=== PATIENT | female | born 1985 | race Two or more races ===

== ENCOUNTER 2020-06-08 17:34 | Outpatient (CLI) | payer OTHER | END 2020-06-08 18:05 | disposition home or self-care (01) | LOC: LAB 17:34 | PROVIDERS: ATTEND Orthopaedic Surgery | DX: M25.462 Effusion, left knee (principal) ==

== ENCOUNTER 2023-07-21 19:16 | Emergency (ER) | payer OTHER ==
[~2023-07-21] VITALS: Ht 170.2 cm; Wt 103.0 kg
[2023-07-22] MEDS ORDERED: KETO10TA2 PO (02:03)
[2023-07-22] MEDS ORDERED: LEVSIN/SL0.125 MG SL (02:04)
== END 2023-07-22 02:22 ==
LOC: ER 19:16
DX: K57.90 Diverticulosis of intestine, part unspecified, without perforation or abscess without bleeding (principal); R10.9 Unspecified abdominal pain

== ENCOUNTER 2024-08-01 08:08 | Emergency (ER) | payer OTHER ==
[~2024-08-01] VITALS: Ht 170.2 cm; Wt 105.2 kg
[~2024-08-01 08:08] MED LIST: KETO10TA2 PO; LEVSIN/SL0.125 MG SL
[2024-08-01] MEDS ORDERED: FAMOTIDINE/PF 20 MG/2 ML VIAL ONE (09:29)
[2024-08-01] MEDS ORDERED: ONDANSETRON HCL 2 MG/ML VIAL ONE (09:29)
[2024-08-01] MEDS ORDERED: FAMOTIDINE/PF 20 MG/2 ML VIAL IV PUSH ONE (09:30)
[2024-08-01] MEDS ORDERED: ONDANSETRON HCL 2 MG/ML VIAL IV ONE (09:30)
[2024-08-01] MEDS ORDERED: HYOSCYAMINE SULFATE 0.125 MG TAB.SUBL SL ONE (09:30)
[2024-08-01] MEDS ORDERED: HYOSCYAMINE SULFATE 0.125 MG TAB.SUBL ONE (09:33)
[2024-08-01 10:16] LABS: HEMATOCRIT 36.5 % (36.0-45.00); HEMOGLOBIN 12.1 g/dL (12.0-15.00); MEAN CORPUSCULAR HGB CONC 33.3 g/dl (32.0-36.0); PLATELET COUNT 289 K/uL (150-450); RED CELL DISTRIBUTION WIDTH 13.8 % (11.5-14.5)
[2024-08-01 10:19] LABS: URINE APPEARANCE Clear; URINE BILIRRUBIN Negative (NEGATIVE); URINE BLOOD Negative; URINE COLOR Yellow; URINE GLUCOSE Negative (NEGATIVE); URINE KETONE Negative (NEGATIVE); URINE LEUKOCYTE Negative; URINE NITRATE Negative; URINE PROTEIN Negative (NEGATIVE); URINE UROBILINOGEN 0.2 E.U./dl
[2024-08-01 10:24] LABS: URINE BACTERIA 153.6 uL (0.0-1933); URINE EPITHELIAL CELLS 3.8 uL (0.0-38.8); URINE RBC 7.7 uL (0.0-20.8); URINE WBC 2.7 uL (0.0-23.2)
[2024-08-01 10:30] LABS: POTASSIUM 4.21 mEq/L (3.5-5.1)
[2024-08-01 10:42] LABS: ALBUMIN 3.4 gm/dL (3.4-5.0); CALCIUM 8.7 mg/dL (8.5-10.1); CREATININE SERUM 0.58 mg/dL (0.55-1.02); GFR 114.56
[2024-08-01 10:44] LABS: BILIRUBIN TOTAL 0.26 mg/dL (0.3-1.2); GLOBULINA 4.5 G/DL (2.4-3.5); TOTAL PROTEIN 7.9 gm/dL (6.4-8.2)
== END 2024-08-01 16:35 | disposition home or self-care (01) ==
LOC: ER 08:09
PROVIDERS: General Practice
DX: R10.9 Unspecified abdominal pain (principal); Z88.0 Allergy status to penicillin